=== PATIENT | female | born 1995 | race Two or more races ===

== ENCOUNTER 2018-07-08 03:07 | Observation (INO) | payer OTHER ==
[2018-07-08 03:59] LABS: ABSOLUTE EOSINOPHILS # (AUTO) 0.1 10^3/uL (0.0-0.6); ABSOLUTE LYMPHOCYTES (AUTO) 1.7 10^3/uL (0.5-4.7); ABSOLUTE MONOCYTES (AUTO) 0.7 10^3/uL (0.1-1.4); BASOPHILS % (AUTO) 0.6 % (0-2); EOSINOPHILS % (AUTO) 1.2 % (0-6); HEMATOCRIT 39.7 % (36.0-47.0); HEMOGLOBIN 13.2 g/dL (12.0-15.5); MEAN CORPUSCULAR HEMOGLOBIN 26.5 pg (27.0-33.4); MEAN CORPUSCULAR HGB CONC 33.2 g/dL (32.0-36.0); MEAN CORPUSCULAR VOLUME 80 fl (80-97); MONOCYTES % (AUTO) 9.3 % (3-13); PLATELET COUNT 230 10^3/uL (150-450); RED BLOOD COUNT 4.98 10^6/uL (3.72-5.28); RED CELL DISTRIBUTION WIDTH 12.8 % (11.5-14.0); SEGMENTED NEUTROPHILS % (AUTO) 66.9 % (42-78); TOTAL CELLS COUNTED % (AUTO) 100 %; WHITE BLOOD COUNT 7.5 10^3/uL (4.0-10.5)
[2018-07-08 04:08] LABS: APPEARANCE,URINE SLIGHTLY-CLOUDY; BILIRUBIN,URINE NEGATIVE (NEGATIVE); COLOR,URINE YELLOW; GLUCOSE, URINE NEGATIVE (NEGATIVE); KETONES,URINE NEGATIVE (NEGATIVE); LEUKOCYTE ESTERASE,URINE TRACE (NEGATIVE); NITRITE,URINE NEGATIVE (NEGATIVE); PROTEIN,URINE NEGATIVE (NEGATIVE); URINE SPECIFIC GRAVITY 1.032
[2018-07-08 04:11] LABS: ALANINE AMINOTRANSFERASE 6 U/L (9-52); ALBUMIN 4.6 g/dL (3.5-5.0); ALKALINE PHOSPHATASE 47 U/L (38-126); ANION GAP 11 (5-19); ASPARTATE AMINO TRANSFERASE 30 U/L (14-36); BILIRUBIN,DIRECT 0.3 mg/dL (0.0-0.4); BILIRUBIN,TOTAL 0.4 mg/dL (0.2-1.3); BLOOD UREA NITROGEN 9 mg/dL (7-20); CARBON DIOXIDE 23 mmol/L (22-30); CHLORIDE 106 mmol/L (98-107); GLUCOSE 97 mg/dL (75-110); POTASSIUM 3.7 mmol/L (3.6-5.0)
--- NOTE | 2018-07-08 04:36 | RADIOLOGY REPORT (SQ) ---
CLINICAL HISTORY: /bleeding COMPARISON: None. TECHNIQUE: US TRANSVAGINAL on 07/08/2018 3:27 AM MANAGER LPN FINDINGS: The uterus measures 9.1 cm and is normal in echotexture. Endometrial stripe is thickened measuring 3.8 cm. Ovaries are unremarkable. Cervix measures 2.3 cm. IMPRESSION: Thickened and heterogeneous endometrium measuring up to 3.7 cm. IUP is not seen. Ectopic is not seen due to excluded. Correlate with beta hCG level.
--- NOTE | 2018-07-08 04:49 | ER Document Report ---
ED General - General Chief Complaint: Vag Bleeding, +preg <12wks Stated Complaint: VAGINAL BLEEDING Time Seen by Provider: 07/08/18 03:26 Notes: Patient is a 22-year-old female who presents to the emergency department for generalized vaginal bleeding and suprapubic abdominal pain. Patient states she believes she is between 4 and 5 weeks . States she has had some bright red vaginal bleeding today only saturating one pad. Patient states she believes her last menstrual period was around 10 May. Patient denies feeling lightheaded, dizzy, generalized weakness. Past medical history: None Medications: None Allergies: None Past Medical History - General Information source: Patient, Relative - Social History Smoking Status: Unknown if Ever Smoked Family History: Reviewed & Not Pertinent Patient has suicidal ideation: No Patient has homicidal ideation: No Renal/ Medical History: Denies: Hx Peritoneal Dialysis Review of Systems - Review of Systems Constitutional: No symptoms reported EENT: No symptoms reported Cardiovascular: No symptoms reported Respiratory: No symptoms reported Gastrointestinal: See HPI Genitourinary: See HPI Female Genitourinary: See HPI Musculoskeletal: No symptoms reported Skin: No symptoms reported Hematologic/Lymphatic: No symptoms reported Neurological/Psychological: No symptoms reported Physical Exam - Vital signs Vitals: Temp Pulse Resp BP Pulse Ox 98.2 F 65 16 127/53 H 100 07/08/18 03:08 07/08/18 03:08 07/08/18 03:08 07/08/18 03:08 07/08/18 03:08 - Notes Notes: GENERAL: Alert, interacts well. No acute distress. HEAD: Normocephalic, atraumatic. EYES: Pupils equal, round, and reactive to light. Extraocular movements intact. ENT: Oral mucosa moist, tongue midline. NECK: Full range of motion. Supple. Trachea midline. LUNGS: Clear to auscultation bilaterally, no wheezes, rales, or rhonchi. No respiratory distress. HEART: Regular rate and rhythm. No murmur ABDOMEN: Soft, Non-distended. Bowel sounds present in all 4 quadrants. Mild suprapubic tenderness noted, intermittent left pelvic pain noted. No right pelvic pain noted. EXTREMITIES: Moves all 4 extremities spontaneously. No edema, normal radial and dorsalis pedis pulses bilaterally. No cyanosis. BACK: no cervical, thoracic, lumbar midline tenderness. No saddle anesthesia, normal distal neurovascular exam. NEUROLOGICAL: Alert and oriented x3. Normal speech. cranial nerves II through XII grossly intact PSYCH: Normal affect, normal mood. SKIN: Warm, dry, normal turgor. No rashes or lesions noted. Course - Re-evaluation Re-evalutation: 07/08/18 04:57 [place] [address], her transvaginal ultrasound shows no IUP. Discussed this case with [employer] [employer] Dr. Trejo who will admit the patient for continued observation. She is requesting gonorrhea and Chlamydia testing at this time as well as a type and screen. Patient's vitals continue to be stable. Patient is non-tachycardic, non-hypotensive, continues with mild suprapubic tenderness and is refusing any pain medications at this time. Patient is admitted to on Dr. Trejo service. - Vital Signs Vital signs: Temp Pulse Resp BP Pulse Ox 98.2 F 65 16 127/53 H 100 07/08/18 03:08 07/08/18 03:08 07/08/18 03:08 07/08/18 03:08 07/08/18 03:08 - Laboratory Result Diagrams: 07/08/18 03:50 07/08/18 03:50 Laboratory results interpreted by me: 07/08/18 07/08/18 07/08/18 03:50 03:50 03:53 MCH 26.5 L Creatinine 0.49 L ALT 6 L Beta HCG, Quant 51890.00 H Urine Blood LARGE H Urine Urobilinogen 2.0 H Ur Leukocyte Esterase TRACE H Discharge - Discharge Clinical Impression: Ectopic Qualifiers: Location of ectopic : unspecified location Intrauterine status: without intrauterine Qualified Code(s): O00.90 - Unspecified ectopic without intrauterine Condition: Stable Disposition: ADMITTED OBSERVATION Admitting Provider: OBARSEN Trejo Unit Admitted: Post
--- NOTE | 2018-07-08 07:25 | PDOC H&P ---
History of Present Illness Admission Date/PCP: 07/08/18 05:02 Patient complains of: vaginal bleeding History of Present Illness: MARK HARRIS is a 22 year old female (h/o 3yo, hemorrhage?). ALICIAII used for interpretation. SHe reports that she found out she was approx 2wks ago. Sometime her bleeding is heavier but now is minimal. Past Medical History LMP: 05/09/2018 Gynecological Infection: No Baby 1 Delivery: Spontaneous Vaginal Delivery Obstetrical History: [place], ? hemorrhage Medical History: None Pulmonary Medical History: Reports: None EENT Medical History: Reports: None Neurological Medical History: Reports: None Endocrine Medical History: Reports: None Renal/ Medical History: Reports: None Malignancy Medical History: Reports: None GI Medical History: Reports: None Musculoskeltal Medical History: Reports: None Skin Medical History: Reports: None Psychiatric Medical History: Reports: None Traumatic Medical History: Reports: None Infectious Medical History: Reports: None Past Surgical History Past Surgical History: Reports: None Social History Information Source: Patient Smoking Status: Never Smoker Frequency of Alcohol Use: None Hx Recreational Drug Use: No Drugs: None - Advance Directive Resuscitation Status: Full Code Family History Family History: None, Reviewed & Not Pertinent Parental Family History Reviewed: No Children Family History Reviewed: NA Sibling(s) Family History Reviewed.: NA Medication/Allergy Allergies/Adverse Reactions: seafood Allergy (Uncoded 07/08/18 07:43) Hives Review of Systems Constitutional: ABSENT: chills, fever(s), headache(s), weight gain, weight loss Respiratory: ABSENT: cough, hemoptysis Gastrointestinal: ABSENT: abdominal pain, constipation, diarrhea, hematemesis, hematochezia, nausea, vomiting Genitourinary: ABSENT: dysuria, hematuria Musculoskeletal: ABSENT: joint swelling Integumentary: ABSENT: rash, wounds Neurological: ABSENT: abnormal gait, abnormal speech, confusion, dizziness, focal weakness, syncope Endocrine: ABSENT: cold intolerance, heat intolerance, polydipsia, polyuria Hematologic/Lymphatic: ABSENT: easy bleeding, easy bruising Physical Exam - Physical Exam Vital Signs: Temp Pulse Resp BP Pulse Ox 98.2 F 59 L 18 109/61 100 07/08/18 03:08 07/08/18 05:01 07/08/18 05:01 07/08/18 05:01 07/08/18 05:01 Intake & Output 07/07/18 07/08/18 07/09/18 06:59 06:59 06:59 Weight 62.5 kg General appearance: PRESENT: no acute distress, well-developed, well-nourished Head exam: PRESENT: atraumatic, normocephalic Respiratory exam: PRESENT: clear to auscultation kaylee, symmetrical, unlabored Cardiovascular exam: PRESENT: RRR. ABSENT: diastolic murmur, rubs, systolic murmur Pulses: PRESENT: normal dorsalis pedis pul, +2 pedal pulses bilateral Vascular exam: PRESENT: normal capillary refill GI/Abdominal exam: PRESENT: normal bowel sounds, soft. ABSENT: distended, guarding, mass, organolmegaly, rebound, tenderness Rectal exam: PRESENT: deferred Extremities exam: PRESENT: full ROM. ABSENT: calf tenderness, clubbing, pedal edema Neurological exam: PRESENT: alert, awake, oriented to person, oriented to place, oriented to time, oriented to situation, CN II-XII grossly intact. ABSENT: motor sensory deficit Skin exam: PRESENT: dry, intact, warm. ABSENT: cyanosis, rash Result Laboratory Results: 07/08/18 03:50 07/08/18 03:50 07/08/18 07/08/18 07/08/18 03:50 03:50 03:50 WBC 7.5 RBC 4.98 Hgb 13.2 Hct 39.7 MCV 80 MCH 26.5 L MCHC 33.2 RDW 12.8 Plt Count 230 Seg Neutrophils % 66.9 Lymphocytes % 22.0 Monocytes % 9.3 Eosinophils % 1.2 Basophils % 0.6 Absolute Neutrophils 5.0 Absolute Lymphocytes 1.7 Absolute Monocytes 0.7 Absolute Eosinophils 0.1 Absolute Basophils 0.0 Sodium 140.0 Potassium 3.7 Chloride 106 Carbon Dioxide 23 Anion Gap 11 BUN 9 Creatinine 0.49 L Est GFR ( Amer) > 60 Est GFR (Non-Af Amer) > 60 Glucose 97 Calcium 9.0 Total Bilirubin 0.4 AST 30 ALT 6 L Alkaline Phosphatase 47 Total Protein 8.0 Albumin 4.6 Urine Color Urine Appearance Urine pH Ur Specific [employer] Urine Protein Urine Glucose (UA) Urine Ketones Urine Blood Urine Nitrite Ur Leukocyte Esterase Urine WBC (Auto) Urine RBC (Auto) Blood Type Cancelled 07/08/18 07/08/18 03:53 04:30 WBC RBC Hgb Hct MCV MCH MCHC RDW Plt Count Seg Neutrophils % Lymphocytes % Monocytes % Eosinophils % Basophils % Absolute Neutrophils Absolute Lymphocytes Absolute Monocytes Absolute Eosinophils Absolute Basophils Sodium Potassium Chloride Carbon Dioxide Anion Gap BUN Creatinine Est GFR ( Amer) Est GFR (Non-Af Amer) Glucose Calcium Total Bilirubin AST ALT Alkaline Phosphatase Total Protein Albumin Urine Color YELLOW Urine Appearance SLIGHTLY-CLOUDY Urine pH 5.0 Ur Specific [employer] 1.032 Urine Protein NEGATIVE Urine Glucose (UA) NEGATIVE Urine Ketones NEGATIVE Urine Blood LARGE H Urine Nitrite NEGATIVE Ur Leukocyte Esterase TRACE H Urine WBC (Auto) 4 Urine RBC (Auto) 11 Blood Type A POSITIVE Impressions: Transvaginal US 07/08/18 03:27 IMPRESSION: Thickened and heterogeneous endometrium measuring up to 3.7 cm. IUP is not seen. Ectopic is not seen due to excluded. Correlate with beta hCG level. Status: Image reviewed by me Assessment & Plan - Diagnosis (1) Abnormal in first trimester Is this a current diagnosis for this admission?: Yes [facility] per LMP and previously had a normal term vaginal delivery. Significant debris in uterus which is disorganized and concern for abnormal IUP with possible molar . Reviewed other possible dx with patient: abnormal IUP, incomplete , possible molar , possible ectopic (ectopic less likely) Last po intake was 0100. Currently stable. Will obtain repeat labs and re-eval after repeat labs. Plan for suction D&C if HCG does not significantly decrease and once NPO status achieved. - Time Time Spent: 30 to 50 Minutes Smoking Cessation Education: 3 to 10 minutes Medications reviewed and adjusted accordingly: Yes Anticipated discharge: Home Within: within 24 hours - Inpatient Certification Based on my medical assessment, after consideration of the patient's comorbidities, presenting symptoms, or acuity I expect that the services needed warrant INPATIENT care.: Yes I certify that my determination is in accordance with my understanding of Medicare's requirements for reasonable and necessary INPATIENT services [42 CFR 412.3e].: Yes Medical Necessity: Need Close Monitoring Due to Risk of Patient Decompensation, Need For IV Fluids, Need for Surgery Post Hospital Care: D/C Patient Safety Officer Documentation
[2018-07-08 07:30] LABS: CHLAM PCR NOT DETECTED (NOT DETECT); GON PCR NOT DETECTED (NOT DETECT)
[2018-07-08 08:49] LABS: ABSOLUTE EOSINOPHILS # (AUTO) 0.1 10^3/uL (0.0-0.6); ABSOLUTE LYMPHOCYTES (AUTO) 1.9 10^3/uL (0.5-4.7); ABSOLUTE MONOCYTES (AUTO) 0.7 10^3/uL (0.1-1.4); ABSOLUTE NEUT (AUTO) 4.4 10^3/uL (1.7-8.2); BASOPHILS % (AUTO) 0.6 % (0-2); EOSINOPHILS % (AUTO) 1.3 % (0-6); HEMATOCRIT 38.3 % (36.0-47.0); HEMOGLOBIN 12.8 g/dL (12.0-15.5); LYMPHOCYTES % (AUTO) 26.9 % (13-45); MEAN CORPUSCULAR HEMOGLOBIN 26.8 pg (27.0-33.4); MEAN CORPUSCULAR HGB CONC 33.5 g/dL (32.0-36.0); MEAN CORPUSCULAR VOLUME 80 fl (80-97); MONOCYTES % (AUTO) 9.6 % (3-13); PLATELET COUNT 214 10^3/uL (150-450); RED BLOOD COUNT 4.79 10^6/uL (3.72-5.28); RED CELL DISTRIBUTION WIDTH 12.7 % (11.5-14.0); SEGMENTED NEUTROPHILS % (AUTO) 61.6 % (42-78); TOTAL CELLS COUNTED % (AUTO) 100 %; WHITE BLOOD COUNT 7.1 10^3/uL (4.0-10.5)
[2018-07-08] MEDS ORDERED: RINGERS SOLUTION,LACTATED 1,000 ML IV PRN (09:02)
[2018-07-08] MEDS ORDERED: FENTANYL CITRATE INJ/PF 100 MCG/2 ML AMPUL ONE (09:30)
[2018-07-08] MEDS ORDERED: ONDANSETRON HCL INJ/PF 4 MG/2 ML SDV ONE (09:31)
[2018-07-08] MEDS ORDERED: PROPOFOL INJ 200 MG/20 ML VIAL IV ONE (09:31)
[2018-07-08] MEDS ORDERED: MIDAZOLAM 2 MG/2 ML INJ ONE (09:31)
[2018-07-08] MEDS ORDERED: DEXAMETHASONE SOD PHOSPHATE INJ 4 MG/1 ML VIAL ONE (09:31)
[2018-07-08] MEDS ORDERED: MORPHINE SULFATE 10 MG/ML INJ IV PRN (09:58)
[2018-07-08] MEDS ORDERED: PROMETHAZINE HCL INJ 25 MG/1 ML VIAL IV PRN ×2 (09:58)
[2018-07-08] MEDS ORDERED: DIPHENHYDRAMINE HCL 50 MG/ML VIAL IV PRN (09:58)
[2018-07-08] MEDS ORDERED: MEPERIDINE HCL/PF INJ 25 MG/1 ML DISP.SYRIN IV PRN (09:58)
[2018-07-08] MEDS ORDERED: FENTANYL CITRATE INJ/PF 100 MCG/2 ML AMPUL IV PRN ×3 (09:58)
[2018-07-08] MEDS ORDERED: ACETAMINOPHEN 1,000 MG/100 ML RTUPB IV ONE (10:25)
[2018-07-08] MEDS ORDERED: OXYCODONE-ACETAMINOPHEN 5-325 MG TABLET PO PRN (11:17)
[2018-07-08] MEDS: IBUPROFEN 800 MG TABLET PO SCH ×2 (13:49→18:50)
[2018-07-08] MEDS ORDERED: DIBUCAINE 1% OINTMENT 28 GM PR PRN (13:58)
[2018-07-08] MEDS ORDERED: GLYCERIN/WITCH HAZEL LEAF 1 EACH MED..PAD TP PRN (13:59)
--- NOTE | 2018-07-08 14:32 | OPERATIVE REPORT E ---
Operative Report NAME: MARK HARRIS : 1995 AGE: 22Y DATE OF SURGERY: 07/08/2018 ROOM: 213 PREOPERATIVE DIAGNOSIS: INCOMPLETE AB. POSTOPERATIVE DIAGNOSIS: INCOMPLETE AB. OPERATION: Suction D and C. SURGEON: Janae LEE M.D. ANESTHESIA: General. ESTIMATED BLOOD LOSS: Less than 25 mL. TISSUE REMOVED SPECIMEN: Products of conception. PROCEDURE: Patient was placed in the dorsolithotomy position, prepped and draped in sterile fashion. The speculum was placed. Cervix was grasped with a single-toothed tenaculum. The os was already dilated and admitted a #8 suction catheter. Suction curettage was performed, followed by sharp curettage, followed by repeat suction. A moderate amount of tissue was recovered. Single-toothed tenaculum was removed and hemostasis was noted. The procedure was terminated and she was taken to the recovery room in good condition. DICTATING PHYSICIAN: Janae LEE M.D. [id number] Y#: [id number] ID: [id number] JOB#: [id number] ACCT: [id number] cc:Janae LEE M.D. >
--- NOTE | 2018-07-09 08:45 | PDOC DISCHARGE SUMMARY ---
General - Admit/Disc Date/PCP Admission Date/Primary Care Provider: 07/08/18 05:02 Discharge Date: 07/09/18 - Discharge Diagnosis (2) Abnormal in first trimester Is this a current diagnosis for this admission?: Yes - Additional Information Resuscitation Status: Full Code History of Present Illness History of Present Illness: MARK HARRIS is a 22 year old female Hospital Course Hospital Course: underwent D&C yesterday for Missed ab. BHCG has decreased by over 50%. is eating well and tolerating regular diet. pain decreased. bleeding minimal Physical Exam - Physical Exam Vital Signs: Temp Pulse Resp BP Pulse Ox 98.7 F 75 16 114/58 L 97 07/09/18 04:22 07/09/18 04:22 07/09/18 04:22 07/09/18 04:22 07/09/18 04:22 Intake & Output 07/08/18 07/09/18 07/10/18 06:59 06:59 06:59 Intake Total 1250 Output Total 650 Balance 600 Weight 62.5 kg General appearance: PRESENT: no acute distress, cooperative Result Laboratory Results: 07/08/18 08:35 07/08/18 03:50 07/08/18 07/08/18 08:35 08:35 WBC 7.1 RBC 4.79 Hgb 12.8 Hct 38.3 MCV 80 MCH 26.8 L MCHC 33.5 RDW 12.7 Plt Count 214 Seg Neutrophils % 61.6 Lymphocytes % 26.9 Monocytes % 9.6 Eosinophils % 1.3 Basophils % 0.6 Absolute Neutrophils 4.4 Absolute Lymphocytes 1.9 Absolute Monocytes 0.7 Absolute Eosinophils 0.1 Absolute Basophils 0.0 Blood Type A POSITIVE Antibody Screen NEGATIVE Impressions: Transvaginal US 07/08/18 03:27 IMPRESSION: Thickened and heterogeneous endometrium measuring up to 3.7 cm. IUP is not seen. Ectopic is not seen due to excluded. Correlate with beta hCG level. Plan Discharge Plan: needs follow up in one week before patient leaves for [facility]. Pain fever and bleeding precautions. Time Spent: Less than 30 Minutes
[2018-07-09 10:54] VITALS: BP 107/58
[2018-07-09] MEDS: IBUPROFEN 800 MG TABLET PO SCH (11:02)
== END 2018-07-09 11:55 | disposition home or self-care (01) ==
LOC: ER 03:07 → EH 05:02 → 2N 06:07
PROVIDERS: ADMIT Student in an Organized Health Care Education/Training Program; ATTEND Student in an Organized Health Care Education/Training Program
PROC: 10D17Z9 Manual Extraction of Products of Conception, Retained, Via Natural or Artificial Opening (ICD-10-PCS; principal; 2018-07-08 10:00)
DX: O03.4 Incomplete spontaneous abortion without complication (principal)
CPT/HCPCS: 99285; 86900; 86901; 36415 ×2; 86850; 84702 ×2; 85025; 80053; 81001; 87491; 87591; 88305 ×2; 76817; 93976; 59812; G0378 ×3; J2250; J1100; J3490 ×2; J3010; J2405; J2704; J0131; 1965

== ENCOUNTER 2020-01-06 00:46 | Emergency (ER) | payer OTHER ==
[2020-01-06 02:45] LABS: ABSOLUTE LYMPHOCYTES (AUTO) 2.3 10^3/uL (0.5-4.7); ABSOLUTE MONOCYTES (AUTO) 0.7 10^3/uL (0.1-1.4); ABSOLUTE NEUT (AUTO) 5.5 10^3/uL (1.7-8.2); BASOPHILS % (AUTO) 0.4 % (0-2); EOSINOPHILS % (AUTO) 0.5 % (0-6); HEMATOCRIT 44.3 % (36.0-47.0); HEMOGLOBIN 14.8 g/dL (12.0-15.5); LYMPHOCYTES % (AUTO) 26.9 % (13-45); MEAN CORPUSCULAR HEMOGLOBIN 26.9 pg (27.0-33.4); MEAN CORPUSCULAR HGB CONC 33.5 g/dL (32.0-36.0); MEAN CORPUSCULAR VOLUME 80 fl (80-97); PLATELET COUNT 243 10^3/uL (150-450); RED BLOOD COUNT 5.52 10^6/uL (3.72-5.28); RED CELL DISTRIBUTION WIDTH 12.2 % (11.5-14.0); SEGMENTED NEUTROPHILS % (AUTO) 64.2 % (42-78); TOTAL CELLS COUNTED % (AUTO) 100 %; WHITE BLOOD COUNT 8.5 10^3/uL (4.0-10.5)
[2020-01-06] MEDS ORDERED: NORMAL SALINE 1000 ML 1,000 ML IV ONE (03:58)
[2020-01-06] MEDS ORDERED: ONDANSETRON HCL INJ/PF 4 MG/2 ML SDV IV ONE (03:58)
[2020-01-06] MEDS ORDERED: ONDANSETRON HCL INJ/PF 4 MG/2 ML SDV ONE (04:00)
--- NOTE | 2020-01-06 04:54 | ER Document Report ---
Entered by MAIRA GOMES SCRIBE 01/06/20 0431 Acting as scribe for:CONCHA CULVER IV, MD ED GI/ - General Chief Complaint: Nausea/Vomiting Stated Complaint: NAUSEA Time Seen by Provider: 01/06/20 04:24 Mode of Arrival: Ambulatory Information source: Patient Notes: This 24 year old female patient, A1, currently presents to the ED today with complaints of severe nausea/vomiting that started yesterday. Significant other at bedside states that the patient has not been able to keep anything down and that this is similar to the patient's first . They have not established [employer]ONE[employer] POSITION OFFICER care or had an ultrasound to confirm yet, but plan to go to [facility] later this morning. LMP 10/30/2019. Patient is [place]-speaking, so the HPI is relayed by the patient's significant other. Denies fever or any other complaints. TRAVEL OUTSIDE OF THE [place] IN LAST 30 DAYS: No - Related Data Allergies/Adverse Reactions: seafood Allergy (Uncoded 07/08/18 07:43) Hives Past Medical History - General Information source: Patient Last Menstrual Period: 10/30/2019 - Social History Smoking Status: Never Smoker Cigarette use (# per day): No Chew tobacco use (# tins/day): No Smoking Education Provided: No Frequency of alcohol use: Rare Drug Abuse: None Family History: None, Reviewed & Not Pertinent Patient has suicidal ideation: No Patient has homicidal ideation: No Psychiatric Medical History: Reports: Hx Depression Review of Systems - Review of Systems Constitutional: See HPI. denies: Fever EENT: No symptoms reported Cardiovascular: No symptoms reported Respiratory: No symptoms reported Gastrointestinal: See HPI, Nausea, Vomiting Genitourinary: No symptoms reported Female Genitourinary: See HPI, Last menstrual period - 10/30/2019, Musculoskeletal: No symptoms reported Skin: No symptoms reported Hematologic/Lymphatic: No symptoms reported Neurological/Psychological: No symptoms reported -: Yes All other systems reviewed and negative Physical Exam - Vital signs Vitals: Temp Pulse Resp BP Pulse Ox 98.3 F 90 20 127/84 H 100 01/06/20 01:05 01/06/20 01:05 01/06/20 01:05 01/06/20 01:05 01/06/20 01:05 - General General appearance: Appears well, Alert In distress: None - HEENT Head: Normocephalic, Atraumatic Eyes: Normal Pupils: PERRL - Respiratory Respiratory status: No respiratory distress Chest status: Nontender Breath sounds: Normal Chest palpation: Normal - Cardiovascular Rhythm: Regular Heart sounds: Normal auscultation Murmur: No Friction rub: No Gallop: None auscultated - Abdominal Inspection: Normal Distension: No distension Bowel sounds: Normal Tenderness: Nontender - Abdomen soft Organomegaly: No organomegaly - Back Back: Normal, Nontender - Extremities General upper extremity: Normal inspection General lower extremity: Normal inspection - Neurological Neuro grossly intact: Yes Orientation: AAOx4 Mcfarland Coma Scale Eye Opening: Spontaneous Mcfarland Coma Scale Verbal: Oriented Hardy Coma Scale Motor: Obeys Commands Hardy Coma Scale Total: 15 - Psychological Associated symptoms: Normal affect, Normal mood - Skin Skin Temperature: Warm Skin Moisture: Dry Skin Color: Normal Course - Re-evaluation Re-evalutation: 01/06/20 04:54 Diagnosis, plan of care discussed with patient. All questions were answered prior to discharge. Emergency signs and symptoms, reasons to return to the emergency department discussed with patient and patient's significant other. - Vital Signs Vital signs: Temp Pulse Resp BP Pulse Ox 98.3 F 90 20 127/84 H 100 01/06/20 01:05 01/06/20 01:05 01/06/20 01:05 01/06/20 01:05 01/06/20 01:05 - Laboratory Result Diagrams: 01/06/20 02:30 01/06/20 02:30 Laboratory results interpreted by me: 01/06/20 02:30 RBC 5.52 H MCH 26.9 L Discharge - Discharge Clinical Impression: Hyperemesis gravidarum Condition: Stable Disposition: HOME, SELF-CARE Instructions: Antinausea Medication ([facility]), Hyperemesis Gravidarum ([facility]) Additional Instructions: Return to the Emergency Department without delay if any worse. HOME CARE INSTRUCTIONS & INFORMATION: Thank you for choosing us for your medical needs. We hope you're satisfied with the care you received. After you leave, you must properly care for your problem and, at the same time, observe its progress. Any condition can change. Some illnesses can change rapidly over hours or days. If your condition worsens, return to the Emergency Department or see your physician promptly. ABOUT YOUR X-RAYS AND EKG'S: If you had an EKG or X-rays taken, they have been read by the Emergency Physician. The X-rays and EKG's will also be read by a Radiologist or Radio Tester within 24 hours. If discrepancies are noted, you wi ll be notified by telephone. Please be certain the ED has a correct telephone number & address where you can be reached. Also, realize that some fractures or abnormalities do not show up on initial X-rays. If your symptoms continue, see your physician. ABOUT YOUR LABORATORY TEST: If you had laboratory tests, the results have been reviewed by the Emergency Physician. Some test results (for example cultures) may not be available for several days. You will be contacted if any test result shows you need additional treatment. Please be certain the ED has a correct telephone number and address where you can be reached. ABOUT YOUR MEDICATIONS: You will receive instructions on how to take your medicine on the prescription label you receive. Additional information may be provided by the Pharmacy. If you have questions afterwards, call the ED for clarification or further instructions. Some prescribed medications may cause drowsiness. Do not perform tasks such as driving a car or operating machinery without consulting your Pharmacist. If you feel you need a refill of pain medication, your condition will need re-evaluation. Please do not call for a refill of any medication. ABOUT YOUR SIGNATURE: Signature of this document acknowledges to followin. Understanding that you received emergency treatment and that you may be released before al medical problems are known or treated. Please be certain the ED has a correct phone number & address where you can be reached. 2. Acknowledgement that you will arrange for follow-up care as recommended. 3. Authorization for the Emergency Physician to provide information to your follow-up Physician in order to maximize your care. AT ANY TIME, IF YOUR SYMPTOMS CHANGE SIGNIFICANTLY OR WORSEN OR YOU DEVELOP NEW SYMPTOMS, RETURN TO THE EMERGENCY DEPARTMENT IMMEDIATELY FOR RE-EVALUATION. OUR GOAL IS TO PROVIDE EXCELLENT MEDICAL CARE! WE HOPE THAT WE HAVE MET YOUR EXPECTATIONS DURING YOUR EMERGENCY DEPARTMENT VISIT AND THAT YOU FEEL YOU HAVE RECEIVED EXCELLENT CARE! Hyperemesis Gravidarum Hyperemesis gravidarum is the medical term for severe vomiting during . We don't know exactly why it occurs, but it's a common problem. Dehydration can occur. This reduces blood flow to the placenta, decreasing the baby's nourishment. The baby will also become dehydrated. There can be harmful changes in blood sodium, potassium, or acid balance. Our goal is to correct, and prevent, dehydration. For severe cases, we give IV fluids. Antinausea medication will be prescribed. (Don't be concerned about " defects" -- the risk to you and your baby from the hyperemesis is the biggest problem. The antinausea medication is very safe at this stage of .) Call the doctor if you have vaginal bleeding, abdominal pain, severe lightheadedness or weakness, or other alarming symptoms. Referrals: STEVE LEE MD [ACTIVE STAFF] - 01/06/20 Print Language: [place] I personally performed the services described in the documentation, reviewed and edited the documentation which was dictated to the scribe in my presence, and it accurately records my words and actions.
[2020-01-06] MEDS ORDERED: ONDANSETRON ODT 4 MG TAB (6 TAB/ER DISP) PO PRN (04:55)
[2020-01-06 05:16] VITALS: BP 107/58
[2020-01-06 06:46] LABS: ALBUMIN 4.8 g/dL (3.5-5.0); ALKALINE PHOSPHATASE 47 U/L (38-126); ANION GAP 13 (5-19); ASPARTATE AMINO TRANSFERASE 26 U/L (14-36); BILIRUBIN,DIRECT 0.1 mg/dL (0.0-0.4); BILIRUBIN,TOTAL 0.8 mg/dL (0.2-1.3); BLOOD UREA NITROGEN 10 mg/dL (7-20); CALCIUM 10.2 mg/dL (8.4-10.2); CARBON DIOXIDE 18 mmol/L (22-30); CHLORIDE 105 mmol/L (98-107); GLUCOSE 93 mg/dL (75-110); TOTAL PROTEIN 8.5 g/dL (6.3-8.2)
== END 2020-01-06 05:16 | disposition home or self-care (01) ==
LOC: ER 00:46
DX: O21.0 Mild hyperemesis gravidarum (principal); Z3A.09 9 weeks gestation of pregnancy; Z91.013 Allergy to seafood
CPT/HCPCS: 99284; 96361; 96374; 36415; 84702; 83690; 85025; 80053; J2405; J7030